=== PATIENT | female | born 1945 | race Caucasian/White ===

== ENCOUNTER 2018-07-20 19:44 | Emergency (ER) | payer OTHER ==
[~2018-07-20] VITALS: Ht 172.7 cm; Wt 61.7 kg
[~2018-07-20 19:44] MED LIST: ACIDOPHILUS PO; ALOE VERA; ASPI325EC PO; ASPI81EC PO; ATEN25 PO; ATOR40TA PO; CELE200 PO; CEPH500 PO; FAMO20 PO; FAMVIR PO; FOLI1 PO; GLIP2.5ER; HERBS; Humalog100 UNIT/3; IBUP600 PO; IMIP50; INSLI100I SC; INSLIS75I SC; INSULANI SC; INSULANPEN; INSULIN LANTUS; ISOMON30 PO; Isosorbide Dini30 MG PO; LORA1 PO; LOVA20; LOVA20 PO; LOVA40; LOVA40 PO; Lantus100 UNIT/1 SC; Lovastatin20 MG; MECL25 PO; METF500; METF500 PO; METF500C PO; METO25ER PO; Novolog100 UNIT/2 SC; OLME20; OMEP20ER PO; PRED1SU BOTHEYES; PROP60 PO; Papaya Enzyme1 EAC1; Prednisone20 MG PO; SERT100 PO; SERT25 PO; SERT50 PO; SULTRISS PO; TELM20 PO; Ultram50 MG PO; Vistaril25 MG PO; Zofran Odt4 MG SL; Zofran Odt8 MG SL; [UNRECOGNIZED DRUG - OTHER]; [UNRECOGNIZED DRUG - REMARK]; acid reducer
[2018-07-20 21:25] LABS: Calcium, Ionized (POC) 1.28 mmol/L (1.10-1.46); Chloride (POC) 101 mmol/L (98-108); Creatinine (POC) 0.8 mg/dL (0.6-1.0); Glucose (ISTAT POC) 323 mg/dL (70-99); Hemoglobin (POC) 12.2 g/dL (12.0-16.0); Potassium (POC) 4.1 mmol/L (3.5-5.5); Sodium (POC) 141 mmol/L (135-148); Total CO2 (POC) 28 mmol/L (21-32)
== END 2018-07-20 21:44 | disposition home or self-care (01) ==
LOC: ER 19:44
PROVIDERS: Physician Assistant
DX: R20.2 Paresthesia of skin (principal); Z88.5 Allergy status to narcotic agent; Z88.8 Allergy status to other drugs, medicaments and biological substances; Z79.899 Other long term (current) drug therapy; Z79.4 Long term (current) use of insulin; Z79.82 Long term (current) use of aspirin; Z87.01 Personal history of pneumonia (recurrent); E11.9 Type 2 diabetes mellitus without complications; Z87.891 Personal history of nicotine dependence
CPT/HCPCS: 36415; 80047; 85014; 93005; 93010; 99284-25

== ENCOUNTER → 2018-10-06 | Outpatient (CLI) | payer OTHER | END | disposition home or self-care (01) | LOC: LAB 10:48 → LAB SHORT 10:48 | DX: R10.9 Unspecified abdominal pain (principal) | CPT/HCPCS: 87086 ==

== ENCOUNTER → 2019-09-17 | Outpatient (CLI) | payer OTHER ==
[~2019-09-17] MED LIST changes: +ATORVASTATIN CA10 MG PO; +Ativan0.5 MG PO; +INSULANPEN SC; +METFORMIN HCL500 M3 PO; +ZOLOFT50 MG PO
== END | disposition home or self-care (01) ==
LOC: LAB SHORT 18:05 → LAB EV 18:05
DX: N39.0 Urinary tract infection, site not specified (principal)
CPT/HCPCS: 87086

== ENCOUNTER 2019-09-19 14:28 | Emergency (ER) | payer OTHER ==
[~2019-09-19] VITALS: Ht 152.4 cm; Wt 90.7 kg
[~2019-09-19 14:28] MED LIST changes: -ATORVASTATIN CA10 MG PO; -Ativan0.5 MG PO; -INSULANPEN SC; -METFORMIN HCL500 M3 PO; -ZOLOFT50 MG PO
[2019-09-19 15:54] LABS: BASOPHILS ABSOLUTE AUTO 0.05 K/mm3 (0.00-0.23); BASOPHILS PERCENT AUTO 1 % (0-2); EOSINOPHILS ABSOLUTE AUTO 0.06 K/mm3 (0.00-0.68); EOSINOPHILS PERCENT AUTO 1 % (0-6); Hematocrit 37.6 % (33.0-51.0); Hemoglobin 12.9 g/dL (11.5-16.0); IMMATURE GRAN ABSOLUTE AUTO 0.03 K/mm3 (0.00-0.10); IMMATURE GRAN PERCENT AUTO 0 % (0-1); LYMPHOCYTES ABSOLUTE AUTO 1.62 K/mm3 (0.84-5.20); LYMPHOCYTES PERCENT AUTO 17 % (21-46); MONOCYTES PERCENT AUTO 6 % (4-13); Mean Corpuscular HGB 30.1 pg (26.0-34.0); Mean Corpuscular HGB Conc 34.3 g/dL (31.5-36.5); Mean Corpuscular Volume 88 fL (80-100); Mean Platelet Volume 10.7 fL (9.1-12.4); NEUTROPHILS ABSOLUTE AUTO 6.99 K/mm3 (1.96-9.15); NEUTROPHILS PERCENT AUTO 75 % (41-73); Platelet Count 201 K/mm3 (150-400); RDW Standard Deviation 38.6 fL (35.1-46.3); Red Blood Cell Count 4.28 M/mm3 (3.80-5.20); White Blood Cell Count 9.35 K/mm3 (4.00-11.30)
[2019-09-19 16:14] LABS: Alanine Aminotransfer (ALT/SGP 24 U/L (12-78); Albumin, Blood 3.6 g/dL (3.4-5.0); Albumin/Globulin Ratio 0.9 (0.8-1.8); Alk Phos 65 U/L (50-136); Anion Gap 6 mmol/L (6-16); Aspartate Aminotrans (AST/SGOT 21 U/L (12-37); Bilirubin, Total 0.4 mg/dL (0.1-1.0); Blood Urea Nitrogen 19 mg/dL (8-24); Bun/Creatinine Ratio 24.4 (12.0-20.0); CO2, Blood 27 mmol/L (21-32); Calcium, Blood 9.3 mg/dL (8.5-10.1); Chloride, Blood 106 mmol/L (98-108); Creatinine, Blood 0.78 mg/dL (0.40-1.00); Globulin, Blood 3.9 g/dL (2.2-4.0); Glomerular Filtration Rate >60 (60-); Glucose, Blood 214 mg/dL (70-99); Potassium, Blood 4.5 mmol/L (3.5-5.5); Sodium, Blood 139 mmol/L (136-145); Total Protein, Blood 7.5 g/dL (6.4-8.2)
[2019-09-19] MEDS ORDERED: INSULANPEN SC (16:21)
[2019-09-19] MEDS ORDERED: ATORVASTATIN CA10 MG PO (16:21)
[2019-09-19] MEDS ORDERED: ZOLOFT50 MG PO (16:22)
[2019-09-19] MEDS ORDERED: METFORMIN HCL500 M3 PO (16:22)
[2019-09-19] MEDS ORDERED: Ativan0.5 MG PO (17:28)
== END 2019-09-19 17:39 | disposition home or self-care (01) ==
LOC: ER 14:28
PROVIDERS: Physician Assistant
DX: F43.0 Acute stress reaction (principal); R25.1 Tremor, unspecified; I25.10 Atherosclerotic heart disease of native coronary artery without angina pectoris; I10 Essential (primary) hypertension; E11.9 Type 2 diabetes mellitus without complications; E78.5 Hyperlipidemia, unspecified; F32.9 Major depressive disorder, single episode, unspecified; Z87.891 Personal history of nicotine dependence; Z95.5 Presence of coronary angioplasty implant and graft
CPT/HCPCS: 36415; 70450; 80053; 85025; 93005; 93010; 96374; 99284-25; J2060